=== PATIENT | male | born 1995 | race American Indian/Alaskan Native ===

== ENCOUNTER 2018-11-15 07:08 | Emergency (ER) | payer SELFPAY ==
[2018-11-15 07:24] VITALS: BP 125/74
== END 2018-11-15 10:38 | disposition left against medical advice (07) ==
LOC: ED 07:08
DX: R50.9 Fever, unspecified (principal); J02.9 Acute pharyngitis, unspecified; Z53.21 Procedure and treatment not carried out due to patient leaving prior to being seen by health care provider

== ENCOUNTER 2019-02-02 13:22 | Emergency (ER) | payer SELFPAY ==
[2019-02-02 13:35] VITALS: BP 112/64
--- NOTE | 2019-02-02 15:34 | Emergency Department Report ---
<RYLIE LANGSTON - Last Filed: 02/02/19 15:34> ED Chest Pain HPI - General Chief Complaint: Nosebleed Stated Complaint: NOSE BLEED/PALPITATION Source: patient Mode of arrival: Ambulatory Limitations: No Limitations - History of Present Illness Initial Comments: 23 yo male states that he has CP that has been ongoing for 2 weeks. He stated that today his nose began bleeding. -: week(s) (2) Severity scale (0 -10): 0 - Related Data Allergies Allergy/AdvReac Type Severity Reaction Status Date / Time No Known Allergies Allergy Verified 02/02/19 15:30 ED Past Medical Hx - Past Medical History Previous Medical History?: No - Surgical History Additional Surgical History: ARLETH CANO - Social History Smoking Status: Never Smoker Substance Use Type: None ED Physical Exam - General Limitations: No Limitations ED Disposition Clinical Impression: Chest wall pain Disposition: DC-01 TO HOME OR SELFCARE Condition: Stable Instructions: Costochondritis (ED) Additional Instructions: FOLLOW UP WITH CARDIOLOGY WE DISCUSSED REFERRAL BELOW THEY WILL BE EXPECTING A CALL FROM YOU FOR APPNT Referrals: RODOLFO MAGANA MD [Primary Care Provider] - 3-5 Days HOLGER TOUSSAINT MD [Staff Physician] - 3-5 Days <VAISHNAVI MCKINNON - Last Filed: 02/02/19 17:14> ED Chest Pain HPI - History of Present Illness Complaint: chest pain Onset: during rest, during exertion Pain Location: left chest Quality: tightness Consistency: intermittent Improves With: nothing Worsens With: nothing re: denies: nausea, vomting, diaphoresis Other Symptoms: denies: cough, fever, syncope Treatments Prior to Arrival: none Aspirin use within the Past 7 Days: (0) No - Related Data On Oral Contraceptives: No Heart Score - HEART Score History: Slightly suspicious EKG: Normal Age: < 45 Risk factors: No known risk factors Troponin: < normal limit HEART Score: 0 - Critical Actions Critical Actions: 0-3 pts:0.9-1.7%risk of adverse cardiac event.Candidate for discharge ED Review of Systems ROS: Stated complaint: NOSE BLEED/PALPITATION Other details as noted in HPI Comment: All other systems reviewed and negative ED Past Medical Hx - Past Medical History Previous Medical History?: Yes Additional medical history: CLEFT PALLET AND HYDROCEPH. AN INFANT; NO KNOWN HEART DEFECT - Surgical History Past Surgical History?: Yes - Family History Family history: no significant ED Physical Exam - General General appearance: alert - Head Head exam: Present: normocephalic - Eye Eye exam: Present: normal appearance, PERRL - ENT ENT exam: Present: mucous membranes moist - Neck Neck exam: Present: normal inspection - Respiratory Respiratory exam: Present: normal lung sounds bilaterally - Cardiovascular Cardiovascular Exam: Present: regular rate - GI/Abdominal GI/Abdominal exam: Present: soft - Rectal Rectal exam: Present: deferred - Extremities Exam Extremities exam: Present: normal inspection - Back Exam Back exam: Present: normal inspection - Neurological Exam Neurological exam: Present: alert, oriented X3, CN II-XII intact - Psychiatric Psychiatric exam: Present: normal affect, normal mood - Skin Skin exam: Present: warm, dry, intact ED Course Vital Signs 02/02/19 13:33 Temperature 98.0 F Pulse Rate 64 Respiratory 16 Rate Blood Pressure 112/64 [Right] O2 Sat by Pulse 100 Oximetry QUINCY score - Quincy Score Age > 65: (0) No Aspirin use within the Past 7 Days: (0) No 3 or more CAD Risk Factors: (0) No 2 or more Angina events in past 24 hrs: (0) No Known CAD with more than 50% Stenosis: (0) No Elevated Cardiac Markers: (0) No ST Deviation Greater than 0.5mm: (0) No QUINCY Score: 0 ED Medical Decision Making - Lab Data Result diagrams: 02/02/19 16:07 02/02/19 16:07 - EKG Data EKG shows normal: sinus rhythm Rate: normal - EKG Data When compared to previous EKG there are: no significant change Interpretation: no acute changes - Radiology Data Radiology results: report reviewed, image reviewed - Medical Decision Making NEG TROP 12 LEAD NEG SB-SR NO HYPOXIA NO SOB NO RV STRAIN LABS NOTED XRAY NOTED GIVEN CONGENITAL DEFECTS WILL HAVE PT FOLLOW UP WITH CARDS FOR AN ECHO DC HOME WITH DC PLAN OF CARE AND CARDS FOLLOW UP Vital Signs 02/02/19 13:33 Temperature 98.0 F Pulse Rate 64 Respiratory 16 Rate Blood Pressure 112/64 [Right] O2 Sat by Pulse 100 Oximetry - Differential Diagnosis RO ACS Critical care attestation.: If time is entered above; I have spent that time in minutes in the direct care of this critically ill patient, excluding procedure time. ED Disposition Is pt being admited?: No Does the pt Need Aspirin: No Time of Disposition: 17:13
--- NOTE | 2019-02-02 16:18 | XRay Report ---
CHEST 1 VIEW INDICATION: Chest Pain. COMPARISON: None FINDINGS: Support devices: None. Heart: Within normal limits. Lungs/Pleura: No acute air space or interstitial disease. Additional findings: Left seventh rib is asymmetric but no obvious displaced fracture is identified. This may be related to chronic trauma. Please correlate with the patient. IMPRESSION: Left seventh rib deformity as described. Otherwise unremarkable exam. Signer Name: Zhang Ortiz Jr, MD Signed: 02/02/2019 4:14 PM Workstation Name: [id number]
[2019-02-02 16:31] LABS: Hematocrit 44.3 % (35.5-45.6); Hemoglobin 14.6 gm/dl (11.8-15.2); Mean Corpuscular HGB Conc 33 % (32-34); Mean Corpuscular Volume 86 fl (84-94); Platelet Count 251 K/mm3 (140-440); Red Blood Count 5.13 M/mm3 (3.65-5.03); Red Cell Distribution Width 14.1 % (13.2-15.2)
[2019-02-02 16:53] LABS: Alanine Aminotransferase 85 units/L (7-56); Albumin 4.8 g/dL (3.9-5); BUN/Creatinine Ratio 11; Blood Urea Nitrogen 11 mg/dL (9-20); Calcium 9.3 mg/dL (8.4-10.2); Hemolysis Index 8
== END 2019-02-02 17:15 | disposition home or self-care (01) ==
LOC: ED 13:22
DX: R07.89 Other chest pain (principal)
CPT/HCPCS: 36415; 71045; 80053; 84443; 84484; 85027; 93005; 93010